=== PATIENT | female | born 1955 | race Caucasian/White ===

== ENCOUNTER → 2020-02-05 12:50 | Outpatient (CLI) | payer OTHER, SELFPAY ==
--- NOTE | 2020-02-05 | DI.RAD.S_ITS ---
PROCEDURE: FL BARIUM ENEMA W AIR CONTRAST INDICATIONS: Diverticulosis of intestine, part unspecified COMPARISON: None. 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 No suspicious abdominal calcifications. Visualized solid organ contours are normal in size. No suspicious bony lesions. Colon: There is adequate air-contrast opacification from the rectum to the cecum but the colon is seen to be prominently redundant, especially on the right. Barium contrast and air was used successfully to opacify and visualize much of the right colon. Overlapping colonic structures mildly reduced the quality of the examination but diverticulosis is seen and no polyp or mass lesion is found. No acute diverticulitis would be suspected.. No strictures, ulcers, polyps, or masses are seen. Haustral folds are normal in thickness throughout. . IMPRESSION: Prominently redundant colon especially on the right, which would render accurate assessment by colonoscopy very limited. The right colon traverses 1st to the right lower quadrant than cephalad to the hepatic margin than caudad again to the right lower quadrant/cecum. Colonic diverticulosis is present left greater than right, but involves the transverse colon and to a lesser degree the right colon. No acute diverticulitis found. No polyp identified, no malignant-appearing mass or stricture is found. Limited study as noted due to the overlap of multiple colonic structures on the right. Dictated by: Nawaf Bryant M.D. on 02/05/2020 at 16:50 Approved by: Nawaf Bryant M.D. on 02/05/2020 at 16:52
== END ==
PROVIDERS: Referring Provider Surgery; Visit Provider Surgery
DX: K57.90 Diverticulosis of intestine, part unspecified, without perforation or abscess without bleeding (principal)
CPT/HCPCS: 74280